=== PATIENT | female | born 1985 | race Caucasian/White ===

== ENCOUNTER 2017-11-10 17:31 | Emergency (ER) | payer OTHER ==
[~2017-11-10] VITALS: Ht 172.7 cm; Wt 102.1 kg
[~2017-11-10 17:31] MED LIST: APRI1 EACH PO; BIRTH CONTROL PO; CEPH500 PO; Hair, Skin & N1 EACH PO; IBUP800; IBUP800 PO; LIDO2L MM; MULVITMINE PO; PENVK500 PO; Verotin-Gr Cap1 EACH
[2017-11-10] MEDS ORDERED: CRUTCH4 XX (18:57)
[2017-11-10] MEDS ORDERED: IBUP800 PO (18:57)
== END 2017-11-10 19:09 | disposition home or self-care (01) ==
LOC: ER 17:31
DX: S93.402A Sprain of unspecified ligament of left ankle, initial encounter (principal); Z91.040 Latex allergy status; Z88.2 Allergy status to sulfonamides; Z88.1 Allergy status to other antibiotic agents; Z91.018 Allergy to other foods; Z91.048 Other nonmedicinal substance allergy status; W10.9XXA Fall (on) (from) unspecified stairs and steps, initial encounter
CPT/HCPCS: 73610; 73630; L1906

== ENCOUNTER 2019-01-01 13:28 | Emergency (ER) | payer OTHER ==
[~2019-01-01] VITALS: Ht 172.7 cm; Wt 99.8 kg
[~2019-01-01 13:28] MED LIST changes: +CRUTCH4 XX
[2019-01-01] MEDS ORDERED: Robaxin-750750 MG PO (14:58)
[2019-01-01] MEDS ORDERED: NAPR550 PO (14:58)
== END 2019-01-01 15:28 | disposition home or self-care (01) ==
LOC: ER 13:28
DX: M54.6 Pain in thoracic spine (principal); Z91.040 Latex allergy status; Z88.2 Allergy status to sulfonamides; Z88.1 Allergy status to other antibiotic agents; Z91.048 Other nonmedicinal substance allergy status; Z79.899 Other long term (current) drug therapy
CPT/HCPCS: 96372; 99283-25; J1885

== ENCOUNTER 2023-01-01 08:26 | Emergency (ER) | payer OTHER ==
[~2023-01-01] VITALS: Ht 172.7 cm; Wt 99.8 kg
[~2023-01-01 08:26] MED LIST changes: +NAPR550 PO; +Robaxin-750750 MG PO
[2023-01-01 09:19] LABS: BASOPHILS ABSOLUTE AUTO 0.04 K/mm3 (0.00-0.23); BASOPHILS PERCENT AUTO 1 % (0-2); EOSINOPHILS ABSOLUTE AUTO 0.17 K/mm3 (0.00-0.68); EOSINOPHILS PERCENT AUTO 2 % (0-6); Hemoglobin 14.8 g/dL (11.5-16.0); IMMATURE GRAN ABSOLUTE AUTO 0.03 K/mm3 (0.00-0.10); IMMATURE GRAN PERCENT AUTO 0 % (0-1); LYMPHOCYTES ABSOLUTE AUTO 2.93 K/mm3 (0.84-5.20); LYMPHOCYTES PERCENT AUTO 34 % (21-46); MONOCYTES ABSOLUTE AUTO 0.93 K/mm3 (0.16-1.47); MONOCYTES PERCENT AUTO 11 % (4-13); Mean Corpuscular HGB 29.8 pg (26.0-34.0); Mean Corpuscular HGB Conc 34.4 g/dL (31.5-36.5); Mean Corpuscular Volume 87 fL (80-100); Mean Platelet Volume 9.1 fL (9.1-12.4); NEUTROPHILS ABSOLUTE AUTO 4.54 K/mm3 (1.96-9.15); NEUTROPHILS PERCENT AUTO 53 % (41-73); Platelet Count 280 K/mm3 (150-400); RDW Coefficient Variation 11.4 % (11.7-14.2); RDW Standard Deviation 36.3 fL (35.1-46.3); Red Blood Cell Count 4.96 M/mm3 (3.80-5.20); White Blood Cell Count 8.64 K/mm3 (4.00-11.30)
[2023-01-01 09:39] LABS: Albumin, Blood 3.8 g/dL (3.4-5.0); Bilirubin, Total 0.5 mg/dL (0.1-1.0); Calcium, Blood 8.8 mg/dL (8.5-10.1); Creatinine, Blood 0.93 mg/dL (0.40-1.00); Globulin, Blood 3.8 g/dL (2.2-4.0); Potassium, Blood 4.2 mmol/L (3.5-5.5); Total Protein, Blood 7.6 g/dL (6.4-8.2)
[2023-01-01 09:39] LABS: Source, Urine Clean Catch
[2023-01-01 09:47] LABS: Appearance, Urine Clear (Clear); Bilirubin, Urine Neg (Neg); Blood, Urine 2+ (Neg); Color, Urine Yellow (P-Yellow); Glucose Qualitative, Urine Neg (Neg); Ketones, Urine Neg (Neg); Leukocyte Esterase, Urine Neg (Neg); Nitrite, Urine Neg (Neg); Protein, Urine Neg (Neg); Specific Gravity, Urine 1.015 (1.003-1.022); Urobilinogen, Urine NORM (Normal)
[2023-01-01 09:56] LABS: Bacteria Rare /hpf; Mucus Light (0-Heavy); Squamous Epithelial Cells Many /hpf (Few)
[2023-01-01 11:28] VITALS: BP 122/73
== END 2023-01-01 11:28 | disposition home or self-care (01) ==
LOC: ER 08:26
PROVIDERS: Emergency Medicine
DX: R10.31 Right lower quadrant pain (principal); Z88.2 Allergy status to sulfonamides; Z91.040 Latex allergy status; Z88.1 Allergy status to other antibiotic agents; Z91.018 Allergy to other foods
CPT/HCPCS: 74177; 80053; 81001; 84702; 85025; 96374; 99284-25; J1885; J7030; Q9967

== ENCOUNTER 2023-04-21 19:08 | Emergency (ER) | payer OTHER ==
[~2023-04-21] VITALS: Ht 172.7 cm; Wt 99.8 kg
[2023-04-21 19:15] VITALS: BP 158/92
== END 2023-04-21 19:25 | disposition home or self-care (01) ==
LOC: ER 19:08
DX: S83.8X1A Sprain of other specified parts of right knee, initial encounter (principal); Z88.1 Allergy status to other antibiotic agents; Z88.2 Allergy status to sulfonamides; Z91.018 Allergy to other foods; Z91.09 Other allergy status, other than to drugs and biological substances; Z91.040 Latex allergy status; X58.XXXA Exposure to other specified factors, initial encounter
CPT/HCPCS: 99283